=== PATIENT | male | born 1995 | race Caucasian/White ===

== ENCOUNTER 2017-02-15 12:35 | Emergency (ER) | payer OTHER ==
[2017-02-15] MEDS ORDERED: DIPHTH,PERTUSS(ACELL),TET VAC 0.5 ML VIAL IM ONE (13:35)
[2017-02-15] MEDS ORDERED: ceFAZolin SODIUM 1 GM VIAL IM ONE (13:36)
--- NOTE | 2017-02-15 13:38 | ERNOTE ---
Medical Problem HPI - Narrative Date of Service: 02/15/17 - General Chief Complaint: Laceration Time Seen by Provider: 02/15/17 12:51 Source: patient Exam Limitations: no limitations - Immun/Allergies/Home Medications Immunizations: IMMUNIZATION HX Immunizations Up to Date No History of Influenza Vaccine No Hx Pneumococcal Vaccination No Allergies/Adverse Reactions: Allergies No Known Allergies Allergy (Unverified 02/15/17 12:57) Home Medications: HOME MEDICATIONS Acetaminophen [Tylenol] 500 mg PO DAILY 02/15/17 [Last Taken Unknown] Omeprazole 20 mg PO DAILY 02/15/17 [Last Taken Unknown] - History of Present History Narrative: Patient is an inmate who states "I intentionally cut myself so I could come to the hospital and get some care" patient denies any thoughts of self-harm or intention to hurt himself or kill himself or kill others he has no suicidal ideations. Also while he is here he states that he would like to have something to eat. Review of Systems - Review of Systems Constitutional: Present: no symptoms reported EYE: Present: no symptoms reported ENT: Present: no symptoms reported Respiratory: Present: no symptoms reported Cardiology: Present: no symptoms reported Gastrointestinal/Abdominal: Present: no symptoms reported Genitourinary: Present: no symptoms reported Musculoskeletal: Present: other - patient states that since he has been an inmate he has joint pains all over and he cannot sleep. - Patient's Past Medical History Patient History - Medical: No pertinent hx Patient History - Cardiac/Respiratory: No pertinent hx Patient History - Cancer: No Hx of Cancer Patient History - Surgical Procedures: No surgical history Patient History - Other: None - Social History Living Situations: home Psych History: Hx of Anxiety, Hx of Depression Smoking Status: Current every day smoker Alcohol Use: none Drug Use: none, cocaine, marijuana, meth, other - Immunizations Immunizations Up to Date: No Hx Pneumococcal Vaccination: No History of Influenza Vaccine: No Physical Exam - Physical Exam General Appearance: Present: wd/wn, alert, no apparent distress Respiratory: Present: no respiratory distress, normal breath sounds, no accessory muscle use, chest nontender, lungs clear Cardiovascular/Chest: Present: regular rate, rhythm, no murmur, normal peripheral pulses Extremity Exam: Present: other - this patient has 7 lacerations on his left anterior cubital region. They are all very superficial and various lengths ED Progress - Vital Signs Patient's Vital Signs:: I have reviewed the patient's vital signs. Vital Signs: Vital Signs 02/15/17 12:50 Temperature 36.1 C L Pulse Rate 61 Respiratory 16 Rate Blood Pressure 146/86 O2 Sat by Pulse 99 Oximetry - Progress/Reassessment Chief Complaint: Laceration Plan - Plan Plan: 7 lacerations were cleaned and anesthetized and in sterile fashion the area as and lacerations were sutured up with 21 sutures of the 4-0 Ethilon variety. Patient tolerated the procedure well he will be receiving a TD Shot and Ancef 1 g IM he is to follow-up with his long-term physician in regards to all his other nonemergent needs. Departure Clinical Impression: Laceration of left forearm Qualifiers: Encounter type: initial encounter Qualified Code(s): S51.812A - Laceration without foreign body of left forearm, initial encounter - Departure Disposition: Home self-care Condition: Good Instructions: Laceration Care, Adult, [id number] Additional Instructions: Patient is to have a wound check in 48 hours. Dressing is to be changed daily. Patient is to have sutures evaluated for removal in 7 days.
[2017-02-15] MEDS ORDERED: ceFAZolin SODIUM 1 GM VIAL ONE (13:52)
[2017-02-15 14:21] VITALS: BP 139/74
== END 2017-02-15 14:20 | disposition home or self-care (01) ==
LOC: ER 12:35
PROC: 0HQEXZZ Repair Left Lower Arm Skin, External Approach (ICD-10-PCS; principal; 2017-02-15)
DX: S51.812A Laceration without foreign body of left forearm, initial encounter (principal); Z23 Encounter for immunization; X78.9XXA Intentional self-harm by unspecified sharp object, initial encounter; Y92.149 Unspecified place in prison as the place of occurrence of the external cause; F17.200 Nicotine dependence, unspecified, uncomplicated

== ENCOUNTER 2017-02-15 19:07 | Observation (INO) | payer OTHER ==
[2017-02-15 19:46] LABS: Hematocrit 43.5 % (42.0-52.0); Hemoglobin 14.8 gm/dL (13.5-18.0); Mean Cell Volume 87.5 fl (78-100); Mean Corpuscular Hemoglobin 29.8 pg (27-31); Mean Platelet Volume 10.1 fl (6.0-9.5); Neutrophil # 8.5 K/mm3 (1.3-6.0); Neutrophil % 73.7 % (42-75.0); Platelet Count 218 K/mm3 (150-450); Red Blood Count 4.97 M/mm3 (4.7-6.0); Red Cell Distribution Width 11.8 % (11.5-14.0); White Blood Count 11.5 K/mm3 (4.0-10.5)
--- NOTE | 2017-02-15 19:53 | ERNOTE ---
Medical Problem HPI - Narrative Date of Service: 02/15/17 - General Chief Complaint: General Assessment Time Seen by Provider: 02/15/17 19:31 Source: patient Exam Limitations: no limitations - Immun/Allergies/Home Medications Immunizations: IMMUNIZATION HX Immunizations Up to Date Yes History of Influenza Vaccine No Hx Pneumococcal Vaccination No Allergies/Adverse Reactions: Allergies No Known Allergies Allergy (Unverified 02/15/17 12:57) Home Medications: HOME MEDICATIONS Acetaminophen [Tylenol] 500 mg PO DAILY 02/15/17 [Last Taken Unknown] Omeprazole 20 mg PO DAILY 02/15/17 [Last Taken Unknown] - History of Present History Narrative: Pt. comes in with c/o abdominal pain after he swallowed a razor blade at 1430 this afternoon. Pt. states that he took the razor this morning and cut his arm and was sent to the ER. Pt. states that he kept the razor blade in his mouth the whole time he was being treated at this ER earlier today. Pt. denies any SOB, CP, NVD, fever but state that every joint has hurt lately and and he has been fatigued and his teeth has hurt. Pt. has a hx of IV drug use and is concerned that he may have contracted something. Pt. also states that he is constantly hungry and that he is not being fed enough. Review of Systems - Review of Systems Constitutional: Present: weakness, fatigue, malaise. Absent: recent illness, fever, chills EYE: Present: no symptoms reported ENT: Present: no symptoms reported Respiratory: Present: no symptoms reported. Absent: shortness of breath, cough , wheezing Cardiology: Present: no symptoms reported. Absent: chest pain, palpitations, edema Gastrointestinal/Abdominal: Present: abdominal pain. Absent: nausea, vomiting, diarrhea Genitourinary: Present: no symptoms reported Musculoskeletal: Present: muscle pain, joint pain. Absent: back pain Skin: Present: no symptoms reported Neurological: Present: no symptoms reported. Absent: headache, dizziness/light- headedness, numbness, tingling Endocrine: Present: increased hunger All Other Systems: All systems neg except as marked - Patient's Past Medical History Patient History - Medical: No pertinent hx Patient History - Cardiac/Respiratory: No pertinent hx Patient History - Cancer: No Hx of Cancer Patient History - Surgical Procedures: No surgical history Patient History - Other: None - Social History Living Situations: home Psych History: Hx of Anxiety, Hx of Depression Smoking Status: Former smoker - Immunizations Immunizations Up to Date: Yes Hx Pneumococcal Vaccination: No History of Influenza Vaccine: No Physical Exam - Physical Exam General Appearance: Present: wd/wn, alert, no apparent distress Head Exam: Present: normal inspection, no evidence of injury Eye Exam: Normal inspection: bilateral, PERRL: bilateral, EOMI: bilateral Ears, Nose, Throat: Present: normal pharynx, other - Pt. with oral lacerations partial [id number] L cheek x3 Neck: Present: normal inspection, nontender. Absent: lymphadenopathy (R), lymphadenopathy (L) Respiratory: Present: no respiratory distress, normal breath sounds, no accessory muscle use, chest nontender, lungs clear Cardiovascular/Chest: Present: regular rate, rhythm, no murmur, normal peripheral pulses Gastrointestinal/Abdominal: Present: normal bowel sounds, nondistended, soft, no organomegaly, tenderness - periumbilical Back Exam: Present: normal inspection, normal range of motion, no CVA tenderness , no vertebral tenderness Extremity Exam: Present: normal inspection, non-tender, normal range of motion, no edema Neurological Exam: Present: alert, oriented, normal mood/affect, no motor/ sensory deficits Skin Exam: Present: normal color, warm/dry. Absent: pallor, skin rash ED Progress - Date and Time Seen: Date and Time: 02/15/17 19:42 When questioned pt. states that if he does not get the appropriate medical attention and food that he wants at the [place] [facility] that he will continue to harm himself at the [place] [facility]. I am concerned for this pt. mental state and feel that he is a danger to himself and if pt. is discharged will discuss with the oncoming ERP about pt. disposition as I feel he needs psychiatric care. 02/15/17 20:[address] Medina and he recommends admitting pt. for observation and monitoring him for perineal signs of worsening condition. He states that he will admit pt if hospitalist will not. Discussed with Diana khan and as pt. has suicidal ideation I feel that the hospitalist should admit. 2053 Diana called back and accepts admission after discussing with Dr palacio and Dr Medina - Results and Orders Patient's Lab Results:: I have reviewed the patient's lab results. - Vital Signs Patient's Vital Signs:: I have reviewed the patient's vital signs. Vital Signs: Vital Signs 02/15/17 19:10 Temperature 36.6 C Pulse Rate 69 Respiratory 18 Rate Blood Pressure 133/78 O2 Sat by Pulse 99 Oximetry - X-Ray X-Ray #1 X-Ray: abdomen Interpretation: Interp. by me X-ray Comments: radiopaque foreign body lower abdomen X-Ray #2 X-Ray: pelvis Interpretation: Interp. by me X-ray Comments: radiopaque foreign body lower abdomen - Progress/Reassessment Chief Complaint: General Assessment Departure Clinical Impression: Swallowed foreign body Qualifiers: Encounter type: initial encounter Qualified Code(s): T18.9XXA - Foreign body of alimentary tract, part unspecified, initial encounter - Departure Disposition: [facility] Condition: Fair
[2017-02-15 19:54] LABS: Urine Bilirubin Negative (NEGATIVE); Urine Blood Negative /ul (NEGATIVE); Urine Ketone Negative (NEGATIVE); Urine Nitrite Negative (NEGATIVE); Urine Protein Negative (NEGATIVE); Urine Specific Gravity 1.015 SP.GR. (1.005-1.030); Urine Urobilinogen Normal (NORMAL)
[2017-02-15 19:59] LABS: Albumin * 4.3 gm/dl (3.4-5.0); Anion Gap 11.7 mmol/L (6.8-13.8); BUN/Creatinine Ratio 17.3 (9.0-21.6); Bilirubin, Total 0.3 mg/dL (0.0-1.1); Ca. Corrected For Albumin 8.4 mg/dL (8.4-10.2); Carbon Dioxide 32.5 mmol/L (24-32.6); Potassium 4.2 mmol/L (3.4-4.6)
[2017-02-15 20:06] LABS: Cocaine Ur Negative (NEGATIVE); Urine Barbiturate Negative (NEGATIVE); Urine Benzodiazepines Negative (NEGATIVE); Urine Opiates Negative (NEGATIVE); Urine PCP Negative (NEGATIVE); Urine THC Negative (NEGATIVE)
[2017-02-15 20:07] LABS: Urine Appearance Clear; Urine Bacteria TRACE; Urine Color Yellow; Urine RBC None Seen /hpf (0-5); Urine WBC None Seen /hpf (0-5); Urine Yeast Moderate - 2+
[2017-02-15] MEDS ORDERED: HYDROmorphone HCL 1 MG/ML DISP.SYRIN IV PRN (21:43)
[2017-02-15] MEDS ORDERED: ONDANSETRON HCL/PF 2 MG/ML VIAL IV PRN (21:44)
--- NOTE | 2017-02-15 21:52 | HP ---
<Diana Grayson - Last Filed: 02/16/17 00:13> Chief Complaint - Chief Complaint Date of Service: 02/15/17 Time of Service: 21:41 Chief Complaint: "Abdominal pain, swallowed razor". Source of HPI- Pt;reliable , BERT provider report. History of Present Illness: Mr. Briseno is a 21-yr-old WM with a PMH of: Anxiety, Antisocial Personality Disorder & Depression. Pt is currently serving time at the [facility] and was brought this afternoon (02/15) to the [facility] ER after he intentionally cut himself several times on his LT wrist with a razor. He had 7 lacerations which were sutured by the ERP and he was [facility] to the the [facility]. It is reported that when he got back to the skilled nursing, he disclosed to the staff that he had had pocketed the same razor in his mouth while undergoing evaluation at the ED and that he had swallowed it. He was send to the [facility] ER again where an abdominal X-ray obtained showed he had a radiopaque object within the left and RT hemiabdomen. Surgery was consulted by the ERP and asked for pt to be admitted to the FP/IM due to the psychiatric needs and to observe for acute peritoneal signs. I personally spoke to Dr. Medina about pt and he advised that since the object had passed the pylorus, it has a higher chance of passing spontaneously. He will evaluate pt in am and determine need for additional radiographic imaging. Mr. Briseno states that the reason he swallowed the razor was because he is desperate to get help as he is tired of abusing street drugs. He denies having any suicidal thoughts. He has been at the [facility] for 1 month and is still wanted at the [facility] for theft and drug possession. He admits to illicit use of Meth, cocaine, marijuana and adderall and the last time of drug abuse was on 01/16/17. His father lives out of state and he has no ties with him. His mother is also battling drug use. He states that he graduated among the top in high school. Aside from his fiancee, he has no other social support system. At the time of physical exam, he is alert with flat affect, in no distress.He is in shackles with a cot assembler by his side, who will also be present 21/11 while in the hospital. Pt will be admitted under observation status as stated above and Psychiatry will be consulted on his case in the morning. - Patient's Past Medical History Patient History - Medical: Anxiety, Depression Patient History - Cancer: No Hx of Cancer Patient History - Surgical Procedures: No surgical history Patient History - Other: None - Family History Father Family History - Medical: No pertinent hx Family History - Cardiac/Respiratory: Myocardial Infarction Family History - Cancer: No pertinent family hx Mother Family History - Medical: No pertinent hx Family History - Cardiac/Respiratory: CVA/Stroke Family History - Cancer: No pertinent family hx - Social History Living Situations: home Psych History: Hx of Anxiety, Hx of Depression Smoking Status: Former smoker - Immunizations Immunizations Up to Date: Yes Hx Pneumococcal Vaccination: No History of Influenza Vaccine: No Review Of Systems (GEN) - Review of Systems Generalized/Overall Review: Present: Malaise, Fatigue, Weight loss. Absent: Weakness, Chills, Fever EENTM: Absent: Eye Pain, Blurred Vision, Tearing, Double Vision, Mouth Pain Respiratory: Absent: Cough, Shortness of Breath, Orthopnea Cardiac: Absent: Chest Pain, Edema, Palpitations, Syncope Abdominal: Absent: Nausea, Vomiting, Hematemesis, Abdominal Pain, Constipation, Diarrhea, Bright blood from rectum Genitourinary: Present: Frequency. Absent: Itching, Urgency, Hesitancy, Hematuria Musculoskeletal: Absent: Joint Pain, Back Pain, Joint Swelling, Muscle Pain Neurological: Present: Anxiety, Depressed, Emotional Problems Skin: Present: Other. Absent: Dryness, Lesions Endocrine: Present: Increased Hunger. Absent: Intolerance to Heat, Increased Thirst Misc: All systems neg except as marked Allergies/Adverse Reactions: Allergies Allergy/AdvReac Type Severity Reaction Status Date / Time No Known Allergies Allergy Unverified 02/15/17 12:57 Home Medications: HOME MEDICATIONS Acetaminophen [Tylenol] 650 mg PO PRN PRN 02/15/17 [Last Taken Unknown] Omeprazole 20 mg PO DAILY 02/15/17 [Last Taken 02/13/17] Exam - Exam Vital Signs: Vital Signs - Last Taken Temp 37.4 C 02/15/17 21:35 Pulse 60 02/15/17 21:35 Resp 14 02/15/17 21:35 BP 121/68 02/15/17 21:35 Pulse Ox 99 02/15/17 21:35 Constitutional: Present: Alert, Oriented x3, Cooperative, No distress ENT Exam: Present: normal ENT inspection, hearing grossly normal, dry mucous membranes. Absent: nasal drainage, pharyngeal erythema Eye Exam: bilateral eye: normal inspection, PERRL Neck: Present: full range of motion, supple, normal inspection Back Exam: Present: normal inspection, no CVA tenderness Breasts: Present: Exam deferred Respiratory: Present: lungs clear, No rales, No wheezing Cardiovascular/Chest: Present: normal peripheral pulses, regular rate, rhythm, no chest tenderness, no edema, no murmur Abdomen: Present: Normal bowel sounds, soft, tender - LLQ /Rectal: Present: Exam deferred Extremity: Present: normal range of motion, non-tender, normal inspection Skin Exam: Present: warm/dry, no cyanosis Lymphatic: Present: no adenopathy Neurologic: Present: alert, oriented x 3, depressed affect Appearance: Present: appropriate appearance, appropriate insight Eye contact: Present: cooperative, good eye contact, normal speech Thoughts: Present: no apparent hallucination Diagnostic Studies: Laboratory Results WBC 11.5 K/mm3 (4.0-10.5) H 02/15/17 19:35 RBC 4.97 M/mm3 (4.7-6.0) 02/15/17 19:35 Hgb 14.8 gm/dL (13.5-18.0) 02/15/17 19:35 Hct 43.5 % (42.0-52.0) 02/15/17 19:35 MCV 87.5 fl (78-100) 02/15/17 19:35 MCH 29.8 pg (27-31) 02/15/17 19:35 MCHC 34.0 g/dl (32-36) 02/15/17 19:35 RDW 11.8 % (11.5-14.0) 02/15/17 19:35 Plt Count 218 K/mm3 (150-450) 02/15/17 19:35 MPV 10.1 fl (6.0-9.5) H 02/15/17 19:35 Immature Gran % (Auto) 0.30 % (0.001-0.429) 02/15/17 19:35 Immature Gran # (Auto) 0.04 K/mm3 (0.000-0.0310) H 02/15/17 19:35 Neutrophils % 73.7 % (42-75.0) 02/15/17 19:35 Lymphocytes % 19.1 % (20-51) L 02/15/17 19:35 Monocytes % 6.2 % (0.0-9) 02/15/17 19:35 Eosinophils % 0.3 % (0.0-3.0) 02/15/17 19:35 Basophils % 0.4 % (0.0-1.0) 02/15/17 19:35 Nucleated RBC % 0.0 k/mm3 (0-1) 02/15/17 19:35 Neutrophils # 8.5 K/mm3 (1.3-6.0) H 02/15/17 19:35 Lymphocytes # 2.2 k/mm3 (1.5-3.5) 02/15/17 19:35 Monocytes # 0.7 k/mm3 (0.0-1.0) 02/15/17 19:35 Eosinophils # 0.0 k/mm3 (0.0-0.7) 02/15/17 19:35 Absolute Basophils 0.1 k/mm3 (0.0-0.1) 02/15/17 19:35 Sodium 143 mmol/L (132-142) H 02/15/17 19:35 Plasma Sodium 143 mmol/L (130-142) H 02/15/17 19:35 Potassium 4.2 mmol/L (3.4-4.6) 02/15/17 19:35 Chloride 103 mmol/L (97-106) 02/15/17 19:35 Carbon Dioxide 32.5 mmol/L (24-32.6) 02/15/17 19:35 Anion Gap 11.7 mmol/L (6.8-13.8) 02/15/17 19:35 BUN 14 mg/dL (6-23) 02/15/17 19:35 Creatinine 0.81 mg/dL (0.4-1.4) 02/15/17 19:35 Est GFR (Non-Af Amer) 126 mL/min (60-130) 02/15/17 19:35 BUN/Creatinine Ratio 17.3 (9.0-21.6) 02/15/17 19:35 Random Glucose 104 mg/dL (70-110) 02/15/17 19:35 Calcium 9.0 mg/dL (7.9-10.9) 02/15/17 19:35 Calcium Adj for Albumin 8.4 mg/dL (8.4-10.2) 02/15/17 19:35 Total Bilirubin 0.3 mg/dL (0.0-1.1) 02/15/17 19:35 AST 16 U/L (0-48) 02/15/17 19:35 ALT 11 U/L (19-67) L 02/15/17 19:35 Alkaline Phosphatase 59 U/L (50-170) 02/15/17 19:35 Total Protein 8.0 gm/dL (6.2-8.2) 02/15/17 19:35 Albumin 4.3 gm/dl (3.4-5.0) 02/15/17 19:35 Urine Color Yellow 02/15/17 19:44 Urine Appearance Clear 02/15/17 19:44 Urine pH 7.0 pH (5.0-7.0) 02/15/17 19:44 Ur Specific [place] 1.015 SP.GR. (1.005-1.030) 02/15/17 19:44 Urine Protein Negative mg/dL (NEGATIVE) 02/15/17 19:44 Urine Glucose (UA) Negative mg/dL (NEGATIVE) 02/15/17 19:44 Urine Ketones Negative mg/dL (NEGATIVE) 02/15/17 19:44 Urine Blood Negative /ul (NEGATIVE) 02/15/17 19:44 Urine Nitrate Negative (NEGATIVE) 02/15/17 19:44 Urine Bilirubin Negative mg/dl (NEGATIVE) 02/15/17 19:44 Urine Urobilinogen Normal EU/dl (NORMAL) 02/15/17 19:44 Ur Leukocyte Esterase Negative /ul (NEGATIVE) 02/15/17 19:44 Urine RBC None seen /hpf (0-5) 02/15/17 19:44 Urine WBC None seen /hpf (0-5) 02/15/17 19:44 Ur Epithelial Cells None seen /hpf (0-5) 02/15/17 19:44 Urine Bacteria Trace (NONE) 02/15/17 19:44 Urine Yeast Moderate - 2+ (NONE) H 02/15/17 19:44 Urine Culture Comments No culture indicated 02/15/17 19:44 Urine Opiates Screen Negative (NEGATIVE) 02/15/17 19:44 Barbiturate Screen Negative (NEGATIVE) 02/15/17 19:44 Ur Phencyclidine Scrn Negative (NEGATIVE) 02/15/17 19:44 Urine Amphetamine Negative (NEGATIVE) 02/15/17 19:44 U Benzodiazepines Scrn Negative (NEGATIVE) 02/15/17 19:44 Urine Cocaine Screen Negative (NEGATIVE) 02/15/17 19:44 Urine Marijuana (THC) Negative (NEGATIVE) 02/15/17 19:44 Assessment/Plan - Assessment/Plan (1) Intentional swallowing of foreign object Assessment: Pt presented with intentional ingestion of a sharp object/razor. The abdominal X-ray revealed a radiopaque object on his small bowel. Surgery (Dr. Medina ) consulted by the ERP and is aware about pt's case. I also spoke to him and he expressed his opinion that since the object is past the pylorus, it has a higher chance of being passed spontaneously. Currently pt is in no distress and reports a mild pain on his LLQ. Will monitor for: GI blood loss, severe tender abdomen and hemodynamic instabilty as risk for perforation still exist. He will be evaluated by surgery in am and need for additional radiographic imaging will be determined. Pt will be staffed with a cot assembler 21/11 while under hospitalization. Will consult Psychiatry in am. Problem: Acute (2) Laceration of left forearm Assessment: Pt is to have a wound check in 48 hrs, followed by daily dressing changes and with the plan to remove sutures in 7 days. Problem: Acute QualifierTitle: Encounter type: initial encounter Qualified Code(s): S51.812A - Laceration without foreign body of left forearm, initial encounter (3) Anxiety Problem: Chronic (4) Depression Problem: Chronic (5) Antisocial personality disorder in adult Problem: Chronic <Brigido Jackson - Last Filed: 02/16/17 09:25> History of Present Illness: have examined patient, reviewed record. directed all our nurse practitioner hospitalist care for this patient. may not require psych consult as this time. may be in fact a suitable candidate for return to skilled nursing if he passes this razor blade. Immunizations: IMMUNIZATION HX Immunizations Up to Date Yes History of Influenza Vaccine No Hx Pneumococcal Vaccination No Exam - Exam Vital Signs: Vital Signs - Last Taken Temp 36.7 C 02/16/17 07:42 Pulse 47 L 02/16/17 07:42 Resp 16 02/16/17 07:42 BP 123/85 02/16/17 07:42 Pulse Ox 98 02/16/17 07:42 Diagnostic Studies: Abnormal Lab Results 02/16/17 Range/Units 06:10 RBC 4.65 L (4.7-6.0) M/mm3 Hct 40.7 L (42.0-52.0) % MPV 10.4 H (6.0-9.5) fl Laboratory Results WBC 8.6 K/mm3 (4.0-10.5) D 02/16/17 06:10 RBC 4.65 M/mm3 (4.7-6.0) L 02/16/17 06:10 Hgb 13.7 gm/dL (13.5-18.0) 02/16/17 06:10 Hct 40.7 % (42.0-52.0) L 02/16/17 06:10 MCV 87.5 fl (78-100) 02/16/17 06:10 MCH 29.5 pg (27-31) 02/16/17 06:10 MCHC 33.7 g/dl (32-36) 02/16/17 06:10 RDW 11.9 % (11.5-14.0) 02/16/17 06:10 Plt Count 181 K/mm3 (150-450) 02/16/17 06:10 MPV 10.4 fl (6.0-9.5) H 02/16/17 06:10 Immature Gran % (Auto) 0.20 % (0.001-0.429) 02/16/17 06:10 Immature Gran # (Auto) 0.02 K/mm3 (0.000-0.0310) 02/16/17 06:10 Neutrophils % 54.4 % (42-75.0) 02/16/17 06:10 Lymphocytes % 35.2 % (20-51) 02/16/17 06:10 Monocytes % 8.1 % (0.0-9) 02/16/17 06:10 Eosinophils % 1.5 % (0.0-3.0) 02/16/17 06:10 Basophils % 0.6 % (0.0-1.0) 02/16/17 06:10 Nucleated RBC % 0.0 k/mm3 (0-1) 02/16/17 06:10 Neutrophils # 4.7 K/mm3 (1.3-6.0) 02/16/17 06:10 Lymphocytes # 3.0 k/mm3 (1.5-3.5) 02/16/17 06:10 Monocytes # 0.7 k/mm3 (0.0-1.0) 02/16/17 06:10 Eosinophils # 0.1 k/mm3 (0.0-0.7) 02/16/17 06:10 Absolute Basophils 0.1 k/mm3 (0.0-0.1) 02/16/17 06:10 Sodium 143 mmol/L (132-142) H 02/15/17 19:35 Plasma Sodium 143 mmol/L (130-142) H 02/15/17 19:35 Potassium 4.2 mmol/L (3.4-4.6) 02/15/17 19:35 Chloride 103 mmol/L (97-106) 02/15/17 19:35 Carbon Dioxide 32.5 mmol/L (24-32.6) 02/15/17 19:35 Anion Gap 11.7 mmol/L (6.8-13.8) 02/15/17 19:35 BUN 14 mg/dL (6-23) 02/15/17 19:35 Creatinine 0.81 mg/dL (0.4-1.4) 02/15/17 19:35 Est GFR (Non-Af Amer) 126 mL/min (60-130) 02/15/17 19:35 BUN/Creatinine Ratio 17.3 (9.0-21.6) 02/15/17 19:35 Random Glucose 104 mg/dL (70-110) 02/15/17 19:35 Calcium 9.0 mg/dL (7.9-10.9) 02/15/17 19:35 Calcium Adj for Albumin 8.4 mg/dL (8.4-10.2) 02/15/17 19:35 Total Bilirubin 0.3 mg/dL (0.0-1.1) 02/15/17 19:35 AST 16 U/L (0-48) 02/15/17 19:35 ALT 11 U/L (19-67) L 02/15/17 19:35 Alkaline Phosphatase 59 U/L (50-170) 02/15/17 19:35 Total Protein 8.0 gm/dL (6.2-8.2) 02/15/17 19:35 Albumin 4.3 gm/dl (3.4-5.0) 02/15/17 19:35 Urine Color Yellow 02/15/17 19:44 Urine Appearance Clear 02/15/17 19:44 Urine pH 7.0 pH (5.0-7.0) 02/15/17 19:44 Ur Specific [place] 1.015 SP.GR. (1.005-1.030) 02/15/17 19:44 Urine Protein Negative mg/dL (NEGATIVE) 02/15/17 19:44 Urine Glucose (UA) Negative mg/dL (NEGATIVE) 02/15/17 19:44 Urine Ketones Negative mg/dL (NEGATIVE) 02/15/17 19:44 Urine Blood Negative /ul (NEGATIVE) 02/15/17 19:44 Urine Nitrate Negative (NEGATIVE) 02/15/17 19:44 Urine Bilirubin Negative mg/dl (NEGATIVE) 02/15/17 19:44 Urine Urobilinogen Normal EU/dl (NORMAL) 02/15/17 19:44 Ur Leukocyte Esterase Negative /ul (NEGATIVE) 02/15/17 19:44 Urine RBC None seen /hpf (0-5) 02/15/17 19:44 Urine WBC None seen /hpf (0-5) 02/15/17 19:44 Ur Epithelial Cells None seen /hpf (0-5) 02/15/17 19:44 Urine Bacteria Trace (NONE) 02/15/17 19:44 Urine Yeast Moderate - 2+ (NONE) H 02/15/17 19:44 Urine Culture Comments No culture indicated 02/15/17 19:44 Urine Opiates Screen Negative (NEGATIVE) 02/15/17 19:44 Barbiturate Screen Negative (NEGATIVE) 02/15/17 19:44 Ur Phencyclidine Scrn Negative (NEGATIVE) 02/15/17 19:44 Urine Amphetamine Negative (NEGATIVE) 02/15/17 19:44 U Benzodiazepines Scrn Negative (NEGATIVE) 02/15/17 19:44 Urine Cocaine Screen Negative (NEGATIVE) 02/15/17 19:44 Urine Marijuana (THC) Negative (NEGATIVE) 02/15/17 19:44
[2017-02-15] MEDS ORDERED: FLU VACC QS2017-18(6MOS UP)/PF 60 MCG/0.5 ML SYRINGE IM ONE (22:11)
[2017-02-15] MEDS: DEXTROSE 5%-NORMAL SALINE 1,000 ML IV PRN (22:49)
[2017-02-16 06:16] LABS: Hematocrit 40.7 % (42.0-52.0); Hemoglobin 13.7 gm/dL (13.5-18.0); Mean Cell Volume 87.5 fl (78-100); Mean Corpuscular Hemoglobin 29.5 pg (27-31); Mean Corpuscular Hgb Conc 33.7 g/dl (32-36); Mean Platelet Volume 10.4 fl (6.0-9.5); Neutrophil # 4.7 K/mm3 (1.3-6.0); Neutrophil % 54.4 % (42-75.0); Platelet Count 181 K/mm3 (150-450); Red Blood Count 4.65 M/mm3 (4.7-6.0); Red Cell Distribution Width 11.9 % (11.5-14.0); White Blood Count 8.6 K/mm3 (4.0-10.5)
[2017-02-16] MEDS: DEXTROSE 5%-NORMAL SALINE 1,000 ML IV PRN ×3 (06:37→23:34)
[2017-02-16] MEDS ORDERED: POTASSIUM CHLORIDE IV SCH (11:00)
[2017-02-16] MEDS ORDERED: NORMAL SALINE IV SCH (11:00)
[2017-02-16] MEDS ORDERED: DEXTROSE 5% IV SCH (11:00)
--- NOTE | 2017-02-16 11:27 | PN ---
Subjective - Date and Time Seen Date: 02/16/17 Time: 11:26 Subjective Narrative: The patient has no complaints Objective - Review of Systems Generalized/Overall Review: Reports: No Symptoms Reported EENTM: Reports: No Symptoms Reported Respiratory: Reports: No Symptoms Reported Cardiac: Reports: No Symptoms Reported Abdominal: Reports: No Symptoms Reported Genitourinary Symptoms: Reports: No Symptoms Reported Musculoskeletal Complaints: Reports: No Symptoms Reported Neurological: Reports: No Symptoms Reported Skin: Reports: No Symptoms Reported Endocrine: Reports: No Symptoms Reported Misc: All systems neg except as marked - Vitals Vitals: Last Vital Signs Selected Entries Selected Entries Selected Entries 02/16/17 07:42 Temperature 36.7 C Temperature Oral Source Pulse Rate 47 L Respiratory 16 Rate Blood Pressure 123/85 Blood Pressure 97 Mean O2 Sat by Pulse 98 Oximetry Oxygen Delivery Room Air Method - Abnormal Lab Findings Abnormal Lab Findings: Abnormal Lab Results 02/16/17 Range/Units 06:10 RBC 4.65 L (4.7-6.0) M/mm3 Hct 40.7 L (42.0-52.0) % MPV 10.4 H (6.0-9.5) fl - Exam Constitutional: Present: Alert, Oriented x3, Cooperative, Well developed, Well nourished, No distress ENT Exam: Present: normal ENT inspection Neck: Present: normal inspection Respiratory: Present: normal breath sounds, no respiratory distress Cardiovascular/Chest: Present: regular rate, rhythm, no murmur Abdomen: Present: Normal bowel sounds, soft, nontender, nondistended, no rebound tenderness, no hepatospenomegaly, no masses Extremity: Present: normal inspection, no pedal edema Skin Exam: Present: normal color, warm/dry, no cyanosis Neurologic: Present: alert, oriented x 3 Appearance: Present: appropriate appearance, appropriate insight, neat, no memory impairment Eye contact: Present: cooperative, good eye contact, normal speech Thoughts: Present: normal thought pattern Assessment/Plan Plan Narrative: Razor blade is still in the stomach on xray today. I have spoken by telephone today with our surgeon, Dr. Medina. He said there is a 90% chance this will pass on its own. He said we should keep him NPO. He said there is a 10% chance it will not pass and cause an internal laceration. In that case, the patient will require an emergent laperotomy. I explained this all to the patient and his police detention attendant, both of whom expressed understanding. - Problems/Diagnosis (1) Swallowed foreign body Problem: Acute Qualifiers: Encounter type: initial encounter Qualified Code(s): T18.9XXA - Foreign body of alimentary tract, part unspecified, initial encounter
--- NOTE | 2017-02-16 15:55 | CONS ---
HPI - General Date of Service: 02/16/17 Narrative: Pt was seen in ER after slitting his wrists. Later confessed to having swallows a razor. Xray confirmed position in the stomach. Todays follow up has showed no progression out of the stomach. He currently c/o mild LLQ pain and is noted to be obstipated by AXR. Source: patient, police, RN/MD, old records Exam Limitations: no limitations - History of Present Illness Allergies/Adverse Reactions: Allergies No Known Allergies Allergy (Unverified 02/15/17 12:57) Home Medications: Home Medications Medication Instructions Recorded Last Taken Acetaminophen [Tylenol] 650 mg PO PRN PRN 02/15/17 Unknown Omeprazole 20 mg PO DAILY 02/15/17 02/13/17 - Patient's Past Medical History Patient History - Medical: Anxiety, Depression Patient History - Cardiac/Respiratory: No pertinent hx Patient History - Cancer: No Hx of Cancer Patient History - Surgical Procedures: No surgical history Patient History - Other: None - Family History Father Family History - Medical: No pertinent hx Family History - Cardiac/Respiratory: Myocardial Infarction Family History - Cancer: No pertinent family hx Mother Family History - Medical: No pertinent hx Family History - Cardiac/Respiratory: CVA/Stroke Family History - Cancer: No pertinent family hx - Social History Living Situations: home Psych History: Hx of Anxiety, Hx of Depression Smoking Status: Former smoker Have you smoked in the past 12 months: Yes Do you dip or chew tobacco: No Patient requests Smoking Cessation Consult: No Initiate information on Smoking Cessation: No Alcohol Use: none Drug Use: cocaine, marijuana, meth - Immunizations Immunizations Up to Date: Yes Hx Pneumococcal Vaccination: No History of Influenza Vaccine: No Medications - Medications Current Medications: Current Medications Dextrose/Sodium Chloride (Dextrose 5%-0.9% Ns) 1,000 mls @ 125 mls/hr IV .Q8H PRN PRN Reason: HYDRATION Stop: 03/17/17 21:41 Last Admin: 02/16/17 14:22 Dose: 125 mls/hr Review of Systems - Review of Systems Narrative: + Psych issues. Being addressed. Misc: All systems neg except as marked Physical Examination - Exam Vital Signs: Vital Signs - Last Taken Temp 37.2 C 02/16/17 14:56 Pulse 53 L 02/16/17 14:56 Resp 20 02/16/17 14:56 BP 125/84 02/16/17 14:56 Pulse Ox 99 02/16/17 14:56 O2 Oxygen Delivery Method Room Air Constitutional: Present: Alert, Oriented x3, Cooperative, Well developed, Well nourished, No distress ENT Exam: Present: normal ENT inspection Eye Exam: bilateral eye: normal inspection Neck: Present: full range of motion, supple, trachea midline Respiratory: Present: no respiratory distress, no accessory muscle use Abdomen: Present: soft, nontender, nondistended, no rebound tenderness, no hepatospenomegaly, no masses, other - Palpable stool in the LLQ Extremity: Present: normal inspection Skin Exam: Present: normal color, warm/dry Neurologic: Present: no motor/sensory deficits Eye contact: Present: cooperative, good eye contact - Results and Findings: Lab/Microbiology results last 24 hrs: Abnormal/Pending Laboratory Last 24 HRS 02/16/17 06:10 RBC 4.65 L Hct 40.7 L MPV 10.4 H - Assessments/Findings (1) Intentional swallowing of foreign object Diagnosis(s): This foreign body is described by the patient as a dual razor. He broke the handle off and swallowed the blades. On AXR this FB appears longer than 6 cm and has not progressed through the stomach with a period of observation. I have recommended an attempt at removal with upper endoscopy. The options, risks, and benefits were reviewed with the patient fully. This includes but is not exclusive to the inability to retrieve the item, and the possibility that additional procedures, open procedures may be required. He seems to understand, asks appropriate questions and desires to proceed. Problem: Acute
[2017-02-16] MEDS ORDERED: RINGER'S SOLUTION,LACTATED 1,000 ML IV ONE (16:40)
--- NOTE | 2017-02-16 17:10 | OR ---
Operative Report - Dictated Report Narrative: Date: Preop dx: Ingested foreign body in stomach Postop dx: Ingested mustard packet in 3rd portion of duodenum, no razor blaze found Procedure: EGD with removal of duodenal foreign body Staff surgeon: Jean Claude Medina MD Anesthesia: GET EBL: None Specimen: Mustard packet-discarded Indications: This gentleman swallowed a twin razor head after snapping off the handle. It doesn't appear to have moved beyond the stomach after a period of observation and is taken to the OR for extraction by EGD. Procedure: The patient underwent the smooth induction of general endotracheal anesthesia. A flexible fiberoptic video endoscope was introduced into the pharynx and advanced under direct vision through the esophagus into the stomach through the pylorus into the duodenum. A foreign body was identified in the 3rd portion of the duodenum that appeared like a condiment packet and could have been used to wrap the razor blaze. The packet was grasped with a forcep and successfully extracted. This was a mustard packet and did not contain any other foreign body. The scope was introduced back into the stomach in a similar fashion. No other foreign body was identified within the stomach. No lacerations, abrasions , or irritation was seen within the stomach. There was a minor amount of irritation adjacent to the mustard packet within the duodenum. Retroflex view within the stomach was normal. The scope was withdrawn and the entire esophagus was normal without lacerations, abrasions, or irritation. The patient tolerated the procedure well and was discharged from the OR in stable condition.
[2017-02-17 06:22] LABS: Hemoglobin 14.4 gm/dL (13.5-18.0); Mean Cell Volume 86.2 fl (78-100); Mean Corpuscular Hemoglobin 29.6 pg (27-31); Mean Corpuscular Hgb Conc 34.3 g/dl (32-36); Mean Platelet Volume 10.1 fl (6.0-9.5); Platelet Count 200 K/mm3 (150-450); Red Blood Count 4.87 M/mm3 (4.7-6.0); Red Cell Distribution Width 11.5 % (11.5-14.0); White Blood Count 9.9 K/mm3 (4.0-10.5)
[2017-02-17 06:41] LABS: Anion Gap 10.4 mmol/L (6.8-13.8); BUN/Creatinine Ratio 6.8 (9.0-21.6); Calcium * 8.9 mg/dL (7.9-10.9); Carbon Dioxide 27.2 mmol/L (24-32.6); Potassium 3.6 mmol/L (3.4-4.6)
[2017-02-17] MEDS ORDERED: ACETAMINOPHEN 325 MG TABLET PO PRN (11:00)
[2017-02-17] MEDS ORDERED: POLYETHYLENE GLYCOL 3350 119 GM BTL PO SCH (11:13)
[2017-02-17 11:52] VITALS: BP 118/78
[2017-02-18] MEDS ORDERED: PANTOPRAZOLE SODIUM 20 MG TABLET.DR PO SCH (07:00)
[2017-02-18] MEDS ORDERED: POLYETHYLENE GLYCOL 3350 119 GM BTL PO SCH (09:00)
--- NOTE | 2017-02-20 16:42 | DS ---
(1) Swallowed foreign body Problem: Acute Qualifiers: Encounter type: initial encounter Qualified Code(s): T18.9XXA - Foreign body of alimentary tract, part unspecified, initial encounter (2) Intentional self-harm Problem: Acute (3) Antisocial personality disorder in adult Problem: Chronic (4) Anxiety Problem: Chronic (5) Laceration of left forearm Problem: Acute Qualifiers: Encounter type: initial encounter Qualified Code(s): S51.812A - Laceration without foreign body of left forearm, initial encounter (6) Constipation Problem: Acute Description of Stay: Patient was kept under watch by the [facility] guards. He was kept NPO and given IV fluids. His right arm wounds were kept clean and dressed. Eventually Dr. Medina decided to explore the patients stomach with upper endoscopy. He found only an empty mustard package, but no razor blade. The patient was constipated, so Miralax was started. He will be kept at all times under close [facility] observation, since he said he will hurt himself again in order to return to the hospital. His stool will be strained for a week at the [facility] looking for other foreign objects. His right arm wound will be dressed daily till the sutures come out. Procedures Performed: see notes below - Upper endoscopy and removal of mustard package by surgery, Dr. Medina. Discharge Disposition: Residential Disposition: Residential Condition: Fair Discharge Activity: Activity as tolerated Discharge Diet: General/regular food Problem Oriented Discharge Instructions to Patient/Family: Swallowed Foreign Body, Adult, [id number] Additional Patient Instructions (free text): Send a copy of this entire discharge summary to the [facility]. This patient MUST be kept under CONSTANT self injury watch at all times. He actively repeatedly says he will injure himself again to return to the hospital. Change his right arm dressing daily. Keep it clean dry and protected. Remove the stitches in ten days. Then continue to dress the wound daily for another 7 days. Strain his stool daily for foreign objects for 7 days. Prescriptions (Any new or edited meds): Omeprazole 20 mg PO DAILY #7 tablet. Polyethylene Glycol 3350 [Miralax] 17 gm PO DAILY #2 bottle Complete Home Medications List: Complete Home Medication List: Acetaminophen [Tylenol] 650 mg PO PRN PRN 02/15/17 Omeprazole 20 mg PO DAILY #7 tablet.dr 02/17/17 Polyethylene Glycol 3350 [Miralax] 17 gm PO DAILY #2 bottle 02/17/17
== END 2017-02-17 13:22 ==
LOC: ER 19:07 → MS 21:33
PROVIDERS: ADMIT Nurse Practitioner; ATTEND Allergy & Immunology
PROC: 0DC98ZZ Extirpation of Matter from Duodenum, Via Natural or Artificial Opening Endoscopic (ICD-10-PCS; principal; 2017-02-16 16:00)
DX: T18.2XXA Foreign body in stomach, initial encounter (principal); X78.8XXA Intentional self-harm by other sharp object, initial encounter; Y92.143 Cell of prison as the place of occurrence of the external cause; Z87.891 Personal history of nicotine dependence; Z23 Encounter for immunization
CPT/HCPCS: 36415; 43247; 72170; 74000; 74020; 80048; 80053; 80307; 81001; 85025; 85027; 90471; 90686; 99285; G0378